=== PATIENT | female | born 1945 | race Caucasian/White ===

== ENCOUNTER 2017-03-08 08:46 | Day surgery (SDC) | payer MEDICARE, OTHER ==
[2017-03-06 15:50] LABS: HEMATOCRIT 42.9 % (36.0-48.0); HEMOGLOBIN 14.2 g/dL (12.0-16.0)
[2017-03-06 16:04] LABS: BUN (BLOOD UREA NITROGEN) 19 MG/DL (6-23); CALCIUM, SERUM 9.2 MG/DL (8.5-10.4); CHLORIDE, SERUM 104 MMOL/L (96-112); CO2 (CARBON DIOXIDE) 30 MMOL/L (24-34); CREATININE 0.93 MG/DL (0.55-1.02); GFR AFRICAN AMERICAN 71 ML/MIN (>=60); GFR NON AFRICAN AMERICAN 61 ML/MIN (>=60); GLUCOSE, SERUM 91 MG/DL (60-99); POTASSIUM, SERUM 3.8 MMOL/L (3.5-5.3); SODIUM, SERUM 142 MMOL/L (135-148)
--- NOTE | ~2017-03-08 | OP ---
Record Of [facility] [address] [place]. [address] NAME: RADHA COLEMAN : 41 STATUS : [facility]#: [id number] AGE: 71 ADM/REG DATE : 03/08/17 MR#: [id number] REPORT SERV DATE: 03/10/17 DICTATED BY: JEANNA NORRIS DATE: 03/10/17 REPORT STATUS : Draft TRANSCRIBED BY: MODL DATE: 03/10/17 DATE OF PROCEDURE: 03/08/2017 PREOPERATIVE DIAGNOSES: 1. Renovascular hypertension. 2. Chronic kidney disease. 3. Right renal artery stenosis. POSTOPERATIVE DIAGNOSES: 1. Renovascular hypertension. 2. Chronic kidney disease. 3. Right renal artery stenosis. PROCEDURES: 1. Ultrasound-guided percutaneous access of the right common femoral artery. 2. Abdominal aortogram with CO2. 3. Nonselective renal arteriogram with CO2. 4. Primary stent placement in the right renal artery (6 mm x 17 mm Visi-Pro stent). TAXATION INSPECTOR: Uzair. ANESTHESIA: Local with MAC. ESTIMATED BLOOD LOSS: 20 mL. CONTRAST: 12 mL. IV FLUIDS: 500 mL. COMPLICATIONS: None. INDICATIONS FOR PROCEDURE: Ms. Coleman is a pleasant 71-year-old female with the above-listed comorbidities. She was found to have a right renal artery stenosis on recent ultrasound. She is recommended for arteriogram with percutaneous intervention on the right renal artery if needed. DETAILS OF PROCEDURE: After informed consent was obtained, the patient was brought to the endovascular suite and placed in a supine position. After administration of IV sedation, she was prepped and draped in the usual sterile fashion. A time-out was performed. I commenced the procedure with ultrasound-guided percutaneous access of the right common femoral artery. This was done after anesthetizing the right groin with local anesthetic. A permanent image of the artery documenting patency was saved and stored in the patient's chart. I accessed with the micropuncture needle. I passed a micropuncture wire and confirmed intra-arterial under fluoroscopy. I then upsized to a 5-Vietnamese sheath over a Bentson wire. I advanced the Bentson wire and [place] flush catheter into the abdominal aorta. Abdominal aortogram was performed with CO2. This showed a patent infrarenal aorta Record Of [facility] [address] [place]. [address] NAME: RADHA COLEMAN : 41 STATUS : [facility] PAT#: [id number] AGE: 71 ADM/REG DATE : 03/08/17 MR#: [id number] REPORT SERV DATE: 03/10/17 DICTATED BY: JEANNA NORRIS. DATE: 03/10/17 REPORT STATUS : Draft TRANSCRIBED BY: MODGiuseppe DATE: 03/10/17 with no stenosis or aneurysmal disease. Common iliacs, internal iliacs, and external iliacs were patent bilaterally with no stenosis. Left renal artery was widely patent with no stenosis. Right renal artery shows a high-grade stenosis at the origin with diminished flow distally. After that, we systemically heparinized. We replaced the Glidewire and exchanged the 5-Vietnamese sheath for a 6.5-Vietnamese TourGuide sheath. Using the TourGuide and the Bentson wire, we selected the right renal artery. Selective right renal artery arteriogram was performed with dilute contrast. This again demonstrated a high-grade stenosis at the origin. Primary stent placement was undertaken in the right renal artery with a 6 mm x 17 mm Visi-Pro stent. Repeat contrast injection shows perfect stent placement with complete resolution of the stenosis and good flow distally. After that, I replaced the Bentson wire, pulled the sheath back into the right common femoral artery. Right femoral artery arteriogram shows a puncture site in the distal common femoral artery. ProGlide closure device was deployed for hemostasis. The patient tolerated the procedure well with no complications. I was present and participated for the entire case as dictated. MWChris/LYN Jeanna Norris M.D. / [id number] CC: Santhosh Borja M.D. Nathan Chamberlain, M.D.
[~2017-03-08 08:46] MED LIST: ASAB PO; B12100T PO; CALTRA600D PO; CARDCD240 PO; CLARIT10 PO; COLCRYS0.6 MG PO; COREG6 PO; COZ50 PO; DORYX150 MG PO; EFFEXOR XR150 MG PO; FIBERCON PO; FISH-EPA1000 MG PO; FLEX PO; FOLIC PO; GAS-X80 MG PO; HARD NAILS PO; JANTOVEN4 MG PO; KLONO1 PO; L40 PO; LIPITOR40 PO; LOP25 PO; MIRALAX POWDER1 PKT PO; MTX2.5 PO; NEUR300 PO; NEXIUM40 PO; NORCO1 TAB PO; P10 PO; P5 PO; PYR200 PO; REMICADE IV; SALAGEN5 MG PO; SEV VITAMINS PO; SPIRO25 PO; STOOL SOFTNER; SUCR PO; T PO; TRAZ100 PO; VITE PO; VOLTAREN1 % TOP; Z300 PO; ZANAFLEX 4 MG TA4 MG PO
[2017-03-08 09:21] LABS: ASCORBIC ACID (UR NOT ORDER) 20 (NEG); BILIRUBIN, URINE NEGATIVE (NEG); KETONE, URINE NEGATIVE (NEG); LEUKOCYTE ESTERASE(NOT OR NEG (NEG); WBC (NOT ORDERED) (RFLEX) 5 (0-5)
[2017-03-08 09:25] LABS: INTERNATIONAL NORMAL RATI 1.6 UNITS (-)
== END 2017-03-08 17:21 | disposition home or self-care (01) ==
LOC: SDC 08:46 → SSU1 13:09
PROVIDERS: Surgery
DX: I70.1 Atherosclerosis of renal artery (principal); I15.0 Renovascular hypertension; I73.9 Peripheral vascular disease, unspecified; I13.0 Hypertensive heart and chronic kidney disease with heart failure and stage 1 through stage 4 chronic kidney disease, or unspecified chronic kidney disease; I50.9 Heart failure, unspecified; N18.9 Chronic kidney disease, unspecified; I48.91 Unspecified atrial fibrillation; G47.33 Obstructive sleep apnea (adult) (pediatric); M06.9 Rheumatoid arthritis, unspecified; K21.9 Gastro-esophageal reflux disease without esophagitis; E11.22 Type 2 diabetes mellitus with diabetic chronic kidney disease; E66.9 Obesity, unspecified; Z99.81 Dependence on supplemental oxygen; Z88.8 Allergy status to other drugs, medicaments and biological substances
CPT/HCPCS: 36251; 37236; 76937; 80048; 81001; 82962; 85014; 85018; 85610; 93005; A9270-GY; C1760; C1769; C1876; C1893; C1894; J1200; J2930; J3010; Q9966